=== PATIENT | male | born 1985 | race Two or more races ===

== ENCOUNTER 2020-03-18 02:47 | Emergency (ER) | payer SELFPAY ==
[~2020-03-18] VITALS: Ht 162.6 cm; Wt 79.7 kg
[2020-03-18 03:00] VITALS: BP 120/74
--- NOTE | 2020-03-18 03:06 | NUR ---
pt states that he does not want to stay here and walked out the door
== END 2020-03-18 03:08 | disposition left against medical advice (07) ==
LOC: ED 03:00
DX: F19.10 Other psychoactive substance abuse, uncomplicated (principal); Z53.21 Procedure and treatment not carried out due to patient leaving prior to being seen by health care provider